=== PATIENT | female | born 1955 | race African-American/Black ===

== ENCOUNTER 2019-02-20 19:31 | Inpatient (IN) | payer SELFPAY ==
[2019-02-20] MEDS ORDERED: SODIUM CHLORIDE 1,000 ML IV STA (19:42)
[2019-02-20] MEDS ORDERED: ACETAMINOPHEN 1000 MG/100 ML VIAL (NON FORMULARY) IVPB ONE (19:46)
[2019-02-20 20:23] LABS: BASO % 0.8 % (0-2.0); HEMOGLOBIN 11.1 GM/dl (10.7-15.3); LYMPH % 8.4 % (8-40); MCH 27.6 pg (25.7-33.7); MCHC 33.6 g/dl (32.0-36.0); MEAN CELL VOLUME 82.3 fl (80-96); MEAN PLT VOLUME 8.3 fl (7.5-11.1); MONO % 6.6 % (3.8-10.2); NEUT % 84.2 % (42.8-82.8); PLATELET COUNT 335 K/MM3 (134-434); RBC 4.01 M/mm3 (3.60-5.2); WHITE BLOOD COUNT 14.9 K/mm3 (4.0-10.8)
[2019-02-20 20:30] LABS: INR 1.37 (0.82-1.09); PROTHROMBIN TIME (PATIENT) 15.2 SEC (10.2-13.0)
[2019-02-20 20:39] LABS: ALBUMIN 3.7 g/dl (3.4-5.0); BILIRUBIN,TOTAL 0.6 mg/dl (0.2-1); CREATININE 0.8 mg/dl (0.55-1.3); POTASSIUM 3.8 mmol/L (3.5-5.1); TOT PROT 8.2 g/dl (6.4-8.2)
[2019-02-20 21:12] LABS: VENOUS PC02 31.8 mmHg (41-51); VENOUS PH 7.44 (7.31-7.41); VENOUS PO2 63.1 mmHg (30-40)
--- NOTE | 2019-02-20 21:32 | PDOC ---
History of Present Illness - General Chief Complaint: Altered Mental Status Stated Complaint: SYNCOPAL EPISODE ALTERED MENTAl status Time Seen by Provider: 02/20/19 19:39 History Source: Patient, EMS Exam Limitations: Clinical Condition - History of Present Illness Initial Comments: HPI: 63 y/o female BIBEMS to ER with altered mental status s/p syncopal episode at work ([employer]). EMS reports the pt was found on the ground. Unable to provide further details or clarify if the episode was witnessed. HPI limited as the pt was only able to provide name but was otherwise disoriented upon arrival. Medical Hx: - Insulin dependent diabetes - HTN Review of Systems: Unable to obtain secondary to pts clinical condition. Physical Examination: Constitutional: Toxic appearing adult female in no acute life threat. Found semi -fowlers on hospital bed. Alert and oriented to person and place but otherwise disoriented. Speech was non-labored, non-pressured. Head: Normocephalic. No obvious external signs of trauma. No facial asymmetry or slurred speech. Eyes: Sclerae white. Neck: Supple, trachea is midline. No JVD or thyromegaly. Cardiovascular / Chest: Tachycardic rate with regular rhythm. No murmur, rubs, clicks, or gallops. Peripheral pulses: radial pulses full. Trace pretibial edema bilaterally. Respiratory: Tachypneic with shallow respirations. Equal chest rise and fall. Clear to auscultation bilaterally. No stridor, no wheezing, no rhonchi. Gastrointestinal: abdomen is soft, non-tender, non-distended. Neuro: Alert and oriented x2. Moving all four extremities spontaneously. No gross deficits. Skin: Hot but dry and intact. : No R or L CVA tenderness. Psych: Affect: appropriate. Mood: unable to assess. Appropriately dressed and groomed. MDM: *Reviewed vital signs, nursing notes, and prior visit documentation (if available). 63 y/o female presenting with AMS reportedly s/p syncopal episode. Tachycardic, tachypneic, and febrile on arrival. No hypotension. HPI and PMH limited by acute clinical condition. Physical exam as described above. Septic order set initiated. Head CT ordered. Administered NS IVFB and Acetaminophen. CBC revealed mild leukocytosis with left shift. CMP revealed mild hyponatremia. Low suspicion for cause of symptoms. Bicarb normal and pH mildly alkalic. Low suspicion for DKA. Head CT unremarkable for acute intracranial lesions. Lactic acid not elevated. Pts mental status improved after initial fluid bolus and acetaminophen. Pt reassessed. Found to be A/Ox4. Denies any active complaints. Denies passing out but cannot provide details on how she was brought to the hospital. Tachycardia has downtrended slightly. Fever has downtrended. Remains normotensive. UA revealed significant pyuria, nitrites, and leukocyte esterase. Suspect likely urosepsis. Ordered Ceftriaxone for antibiotic coverage. Will admit pt for IV antibiotics. 21:[address] [facility]. Awaiting call back. ED Attending will f/u on pending admission. Chetan Ruiz M.D., PGY2 Emergency Medicine Resident Past History - Past Medical History Allergies/Adverse Reactions: Allergies Allergy/AdvReac Type Severity Reaction Status Date / Time No Known Allergies Allergy Unverified 02/20/19 20:07 Home Medications: Ambulatory Orders Enalapril Maleate [Vasotec] 20 mg PO DAILY 02/20/19 Hydrochlorothiazide [Hctz -] 25 mg PO DAILY 02/20/19 Insulin Lispro [Humalog] 100 unit SQ ASDIR 02/20/19 COPD: No Diabetes: Yes HTN: Yes - Suicide/Smoking/Psychosocial Hx Smoking History: Never smoked Information on smoking cessation initiated: No Hx Alcohol Use: No Drug/Substance Use Hx: No *Physical Exam - Vital Signs Last Vital Signs Temp Pulse Resp BP Pulse Ox 101.7 F H 111 H 20 120/71 99 02/20/19 21:22 02/20/19 21:14 02/20/19 21:14 02/20/19 21:14 02/20/19 21:14 ED Treatment Course - LABORATORY CBC & Chemistry Diagram: 02/20/19 19:45 02/20/19 19:45 - ADDITIONAL ORDERS Additional order review: Laboratory Results 02/20/19 02/20/19 02/20/19 19:55 19:55 19:45 PT with INR INR VBG pH 7.44 H POC VBG pCO2 31.8 L POC VBG pO2 63.1 H VBG HCO3 21.1 L VBG O2 Sat (Nahun) 89.3 H VBG Base Excess -2.2 L Sodium Potassium Chloride Carbon Dioxide Anion Gap BUN Creatinine Est GFR (CKD-EPI)AfAm Est GFR (CKD-EPI)NonAf POC Glucometer Random Glucose Lactic Acid 1.5 Calcium Total Bilirubin AST ALT Alkaline Phosphatase Creatine Kinase Troponin I Total Protein Albumin Salicylates < 1.7 L Alcohol, Quantitative 02/20/19 02/20/19 02/20/19 19:45 19:45 19:45 PT with INR 15.2 H INR 1.37 H VBG pH POC VBG pCO2 POC VBG pO2 VBG HCO3 VBG O2 Sat (Nahun) VBG Base Excess Sodium 132 L Potassium 3.8 Chloride 100 Carbon Dioxide 22 Anion Gap 10 BUN 16.0 Creatinine 0.8 Est GFR (CKD-EPI)AfAm 92.22 Est GFR (CKD-EPI)NonAf 79.57 POC Glucometer Random Glucose 144 H Lactic Acid Calcium 10.0 Total Bilirubin 0.6 AST 21 ALT 20 Alkaline Phosphatase 52 Creatine Kinase 46 Troponin I Total Protein 8.2 Albumin 3.7 Salicylates Alcohol, Quantitative < 3.0 02/20/19 02/20/19 19:45 19:41 PT with INR INR VBG pH POC VBG pCO2 POC VBG pO2 VBG HCO3 VBG O2 Sat (Nahun) VBG Base Excess Sodium Potassium Chloride Carbon Dioxide Anion Gap BUN Creatinine Est GFR (CKD-EPI)AfAm Est GFR (CKD-EPI)NonAf POC Glucometer 154 Random Glucose Lactic Acid Calcium Total Bilirubin AST ALT Alkaline Phosphatase Creatine Kinase Troponin I < 0.03 Total Protein Albumin Salicylates Alcohol, Quantitative 02/20/19 02/20/19 19:45 19:41 RBC 4.01 MCV 82.3 MCHC 33.6 RDW 16.0 H MPV 8.3 Neutrophils % 84.2 H Lymphocytes % 8.4 Monocytes % 6.6 Eosinophils % 0.0 Basophils % 0.8 POC Glucometer 154 - Medications Given in the ED: ED Medications Discontinued Medications Generic Name Dose Route Start Last Admin Trade Name Freq PRN Reason Stop Dose Admin Acetaminophen 1,000 mg 02/20/19 19:46 02/20/19 20:03 Ofirmev Injection - IVPB 02/20/19 19:47 1,000 mg ONCE ONE Administration Sodium Chloride 1,000 mls @ 1,000 mls/hr 02/20/19 19:42 02/20/19 19:45 Normal Saline - IV 02/20/19 20:41 1,000 mls/hr ASDIR STA Administration *DC/Admit/Observation/Transfer Diagnosis at time of Disposition: Complicated UTI (urinary tract infection), Tachycardia, Tachypnea Sepsis Qualifiers: Sepsis type: sepsis due to unspecified organism Qualified Code(s): A41.9 - Sepsis, unspecified organism Syncope Qualifiers: Syncope type: unspecified Qualified Code(s): R55 - Syncope and collapse Fever Qualifiers: Fever type: unspecified Qualified Code(s): R50.9 - Fever, unspecified - Discharge Dispostion Condition at time of disposition: Guarded Decision to Admit order: Yes - Referrals - Patient Instructions - Post Discharge Activity
[2019-02-20] MEDS ORDERED: CEFTRIAXONE 1,000 MG in DEXTROSE 5%-WATER - 50 ML IVPB ONE (21:50)
[2019-02-20] MEDS ORDERED: SODIUM CHLORIDE 0.9% 500 ML INFUS.BAG IV ONE (21:51)
[2019-02-20] MEDS ORDERED: cefTRIAXone SODIUM 1 GM VIAL ONE (21:55)
[2019-02-20 22:00] LABS: EPITHELIAL CELLS FEW /hpf
[2019-02-20] MEDS ORDERED: ACETAMINOPHEN 325 MG TABLET (FP) PO PRN (22:57)
[2019-02-20] MEDS: SODIUM CHLORIDE 1,000 ML IV SCH (23:30)
--- NOTE | 2019-02-20 23:35 | HP ---
CHIEF COMPLAINT: AMS, Syncopal episode PCP: Dr. Alonso HISTORY OF PRESENT ILLNESS: 63 year old female with PMhx of IDDM and HTN arrived to ED by EMS for altered mental status and syncopal episode. 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 Patient can not recall incident. Patient denies headache, lightheadedness. Denies fever. Denies chest pain, shortness of breath. Denies nausea, vomiting, diarrhea, abdominal pain. Unable to get complete history as patient lethargy and disoriented at times ER course was notable for: (1) 2 L IVF given (2) Trops negative, CT head: unremarkable, CXR:negative (3) Bicarb normal, anion gap normal (4) UA + given Rocephin 1 g Recent Travel: no PAST MEDICAL HISTORY: IDDM, HTN PAST SURGICAL HISTORY: unable to get information as patient is disoriented/ lethargic Social History: Smoking:no Alcohol:no Drugs: no Family History: unable to get information as patient is disoriented/ lethargic Allergies: No Known Allergies Allergy (Unverified 02/20/19 20:07) HOME MEDICATIONS: Home Medications Medication Instructions Recorded Enalapril Maleate [Vasotec] 20 mg PO DAILY 02/20/19 Hydrochlorothiazide [Hctz -] 25 mg PO DAILY 02/20/19 Insulin Lispro [Humalog] 100 unit SQ ASDIR 02/20/19 REVIEW OF SYSTEMS : unable to conduct ROS as patient is lethargic and disoriented PHYSICAL EXAMINATION Vital Signs - 24 hr 02/20/19 02/20/19 02/20/19 19:33 20:00 20:05 Temperature 103.1 F H 104.3 F H Pulse Rate 122 H 122 H Pulse Rate [ 123 H Apical] Respiratory 32 H 24 H 24 H Rate Blood Pressure 138/75 135/66 Blood Pressure 135/66 [Left Arm] O2 Sat by Pulse 94 L 97 94 L Oximetry (%) 02/20/19 02/20/19 02/20/19 20:17 20:30 20:37 Temperature Pulse Rate 119 H Pulse Rate [ 117 H Apical] Respiratory 18 Rate Blood Pressure Blood Pressure 94/68 [Left Arm] O2 Sat by Pulse 97 99 97 Oximetry (%) 0702/20/19 02/20/19 20:53 21:14 21:22 Temperature 101.7 F H Pulse Rate Pulse Rate [ 119 H 111 H Apical] Respiratory 19 20 Rate Blood Pressure Blood Pressure 105/61 120/71 [Left Arm] O2 Sat by Pulse 97 99 Oximetry (%) GENERAL:lethargy HEENT: NC/AT, EOMI, PERRLA, No JVD RESP: CTA Cardio: S1/S2, no mumur Abd: soft, NT/ ND, BS + Neuro: lethargy, respond to verbal and tactile stimuli ( can answer simple Yes and No questions ) Laboratory Results - last 24 hr 02/20/19 02/20/19 02/20/19 19:41 19:45 19:45 WBC RBC Hgb Hct MCV MCH MCHC RDW Plt Count MPV Absolute Neuts (auto) Neutrophils % Lymphocytes % Monocytes % Eosinophils % Basophils % PT with INR INR VBG pH POC VBG pCO2 POC VBG pO2 VBG HCO3 VBG O2 Sat (Nahun) VBG Base Excess Sodium 132 L Potassium 3.8 Chloride 100 Carbon Dioxide 22 Anion Gap 10 BUN 16.0 Creatinine 0.8 Est GFR (CKD-EPI)AfAm 92.22 Est GFR (CKD-EPI)NonAf 79.57 POC Glucometer 154 Random Glucose 144 H Lactic Acid Calcium 10.0 Total Bilirubin 0.6 AST 21 ALT 20 Alkaline Phosphatase 52 Creatine Kinase 46 Troponin I < 0.03 Total Protein 8.2 Albumin 3.7 Urine Color Urine Appearance Urine pH Urine Protein Urine Glucose (UA) Urine Ketones Urine Blood Urine Nitrite Urine Bilirubin Urine Urobilinogen Ur Leukocyte Esterase Urine RBC Urine WBC Ur Transition Epith Cell Urine Bacteria Salicylates Acetaminophen Alcohol, Quantitative 02/20/19 02/20/19 02/20/19 19:45 19:45 19:45 WBC 14.9 H RBC 4.01 Hgb 11.1 Hct 33.0 MCV 82.3 MCH 27.6 MCHC 33.6 RDW 16.0 H Plt Count 335 MPV 8.3 Absolute Neuts (auto) 12.5 Neutrophils % 84.2 H Lymphocytes % 8.4 Monocytes % 6.6 Eosinophils % 0.0 Basophils % 0.8 PT with INR 15.2 H INR 1.37 H VBG pH POC VBG pCO2 POC VBG pO2 VBG HCO3 VBG O2 Sat (Nahun) VBG Base Excess Sodium Potassium Chloride Carbon Dioxide Anion Gap BUN Creatinine Est GFR (CKD-EPI)AfAm Est GFR (CKD-EPI)NonAf POC Glucometer Random Glucose Lactic Acid Calcium Total Bilirubin AST ALT Alkaline Phosphatase Creatine Kinase Troponin I Total Protein Albumin Urine Color Urine Appearance Urine pH Urine Protein Urine Glucose (UA) Urine Ketones Urine Blood Urine Nitrite Urine Bilirubin Urine Urobilinogen Ur Leukocyte Esterase Urine RBC Urine WBC Ur Transition Epith Cell Urine Bacteria Salicylates Acetaminophen < 10 L Alcohol, Quantitative 02/20/19 02/20/19 02/20/19 19:45 19:45 19:55 WBC RBC Hgb Hct MCV MCH MCHC RDW Plt Count MPV Absolute Neuts (auto) Neutrophils % Lymphocytes % Monocytes % Eosinophils % Basophils % PT with INR INR VBG pH POC VBG pCO2 POC VBG pO2 VBG HCO3 VBG O2 Sat (Nahun) VBG Base Excess Sodium Potassium Chloride Carbon Dioxide Anion Gap BUN Creatinine Est GFR (CKD-EPI)AfAm Est GFR (CKD-EPI)NonAf POC Glucometer Random Glucose Lactic Acid 1.5 Calcium Total Bilirubin AST ALT Alkaline Phosphatase Creatine Kinase Troponin I Total Protein Albumin Urine Color Urine Appearance Urine pH Urine Protein Urine Glucose (UA) Urine Ketones Urine Blood Urine Nitrite Urine Bilirubin Urine Urobilinogen Ur Leukocyte Esterase Urine RBC Urine WBC Ur Transition Epith Cell Urine Bacteria Salicylates < 1.7 L Acetaminophen Alcohol, Quantitative < 3.0 02/20/19 02/20/19 19:55 21:40 WBC RBC Hgb Hct MCV MCH MCHC RDW Plt Count MPV Absolute Neuts (auto) Neutrophils % Lymphocytes % Monocytes % Eosinophils % Basophils % PT with INR INR VBG pH 7.44 H POC VBG pCO2 31.8 L POC VBG pO2 63.1 H VBG HCO3 21.1 L VBG O2 Sat (Nahun) 89.3 H VBG Base Excess -2.2 L Sodium Potassium Chloride Carbon Dioxide Anion Gap BUN Creatinine Est GFR (CKD-EPI)AfAm Est GFR (CKD-EPI)NonAf POC Glucometer Random Glucose Lactic Acid Calcium Total Bilirubin AST ALT Alkaline Phosphatase Creatine Kinase Troponin I Total Protein Albumin Urine Color Yellow Urine Appearance Cloudy Urine pH 5.5 Urine Protein 1+ H Urine Glucose (UA) Negative Urine Ketones Negative Urine Blood Trace-lysed Urine Nitrite Positive H Urine Bilirubin Negative Urine Urobilinogen 0.2 Ur Leukocyte Esterase 2+ Urine RBC 5-10 Urine WBC >100 Ur Transition Epith Cell Few Urine Bacteria Many Salicylates Acetaminophen Alcohol, Quantitative ASSESSMENT/PLAN: 63 year old female with PMHx of IDDM and HTN arrived to ED by EMS for altered mental status and syncopal episode. 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 Patient can not recall incident. In ED patient was given 2L IVF and Rocephin x1 - post patient AOx3 then around 12N patient disoriented / lethargy added zosyn x1 monitor for acute mental changes # sepsis #UTI # Syncope In ED noted with tachycardia, Tachypneic and febrile - Head CT unremarkable - CXR: Negative - CBC: leukocytosis with left shift - CMP revealed mild hyponatremia - UA: pyuria, nitrites, and leukocyte esterase in ED given 2 L NS, tylenol and IV Rocephin x1 - follow up urine and blood culture - continue with IV NS for 24 hours - follow up CBC, CMP in AM - Continue with Rocephin daily - Tylenol po PRN for fever # DM - monitor FSBS coverage with sliding scale - f/u HgA1c # HTN - Continue with Hydrochlorothiazide - Continue with Enalapril Problem List - Problem (1) Sepsis Code(s): A41.9 - SEPSIS, UNSPECIFIED ORGANISM Qualifiers: Sepsis type: sepsis due to unspecified organism Qualified Code(s): A41.9 - Sepsis, unspecified organism (2) Complicated UTI (urinary tract infection) Code(s): N39.0 - URINARY TRACT INFECTION, SITE NOT SPECIFIED (3) Syncope Code(s): R55 - SYNCOPE AND COLLAPSE Qualifiers: Syncope type: unspecified Qualified Code(s): R55 - Syncope and collapse (4) HTN (hypertension) Code(s): I10 - ESSENTIAL (PRIMARY) HYPERTENSION (5) Diabetes Code(s): E11.9 - TYPE 2 DIABETES MELLITUS WITHOUT COMPLICATIONS Visit type - Emergency Visit Emergency Visit: Yes Care time: The patient presented to the Emergency Department on the above date and was hospitalized for further evaluation of their emergent condition. - New Patient This patient is new to me today: Yes Date on this admission: 02/21/19 - Critical Care Critical Care patient: No
[2019-02-21] MEDS ORDERED: PIPERACILLIN/TAZOB 4.5 GM 4.5 GM in DEXTROSE 5%-WATER 100 ML IVPB ONE (00:05)
[2019-02-21] MEDS ORDERED: PIPERACILLIN/TAZOBACTAM 4.5 GM VIAL IVPB ONE (00:08)
[2019-02-21] MEDS ORDERED: ACETAMINOPHEN INJECTION 100 ML IVPB ONE (01:38)
[2019-02-21] MEDS ORDERED: KETOROLAC TROMETHAMINE 30 MG/1 ML VIAL IVPUSH ONE (01:55)
[2019-02-21] MEDS ORDERED: KETOROLAC TROMETHAMINE 30 MG/1 ML VIAL ONE (01:58)
--- NOTE | 2019-02-21 02:11 | PDOC ---
Documentation entered by Sonny Ferguson SCRIBE, acting as scribe for Brielle David MD. Brielle David MD: This documentation has been prepared by the Marty mcintosh Daniel, SCRIBE, under my direction and personally reviewed by me in its entirety. I confirm that the documentation accurately reflects all work, treatment, procedures, and medical decision making performed by me. Attending Attestation - Resident Resident Name: Chetan - ED Attending Attestation I have performed the following: I have examined & evaluated the patient, The case was reviewed & discussed with the resident, I agree w/resident's findings & plan - HPI HPI: 02/20/19 20:11 The patient is a 63 year old female with a past medical history of insulin dependent diabetes and HTN here today for evaluation of altered mental status. History is limited due to patients condition, patient is able to answer some questions but does not recall what happened to her. 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 Patient does not recall the incident and only complains of being cold. Patient denies headache, lightheadedness. Denies fever. Denies chest pain, shortness of breath. Denies nausea, vomiting, diarrhea, abdominal pain. Allergies: NKA - Physicial Exam PE: 02/20/19 20:58 GENERAL: Awake, alert, and oriented to person only, in no acute distress HEAD: No signs of trauma EYES: PERRLA, EOMI, sclera anicteric, conjunctiva clear ENT: +dry mucous membranes. Auricles normal inspection, hearing grossly normal, nares patent, oropharynx clear without exudates. NECK: Normal ROM, supple, no lymphadenopathy, JVD, or masses LUNGS: Breath sounds equal, clear to auscultation bilaterally. No wheezes, and no crackles HEART: +2/6systolic ejection murmur heard R and L 2nd ICS. Regular rate and rhythm, normal S1 and S2, rubs or gallops ABDOMEN: Soft, nontender, normoactive bowel sounds. No guarding, no rebound. No masses EXTREMITIES: Normal range of motion, no edema. No clubbing or cyanosis. No cords, erythema, or tenderness NEUROLOGICAL: Cranial nerves II through XII grossly intact. Moving all 4 extremities equally SKIN: Warm, Dry, normal turgor, no rashes or lesions noted. 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 On presentation, the patient was responsive but oriented only to person. Only complaint that she had was that she "felt cold" during the day. Exam as noted above with marked fever (104F rectally)/tachycardia. Patient had dry mucous membranes and no other significant findings on physical exam. Sepsis protocol with IV hydration begun As noted, diagnostic workup revealed elevated white blood cell count 14.9 thousand with a predominance of neutrophils. Random glucose not significantly elevated at 144; no evidence of significant acidosis with normal lactic acid. Only abnormalities was urinalysis consistent with UTI. Blood cultures and urine culture sent with diagnostic labs. Clinically, the patient became alert, coherent and totally oriented soon after receiving 1 L normal saline IV. She again denied any specific symptoms except for "feeling cold", although she denied shaking chills during the day. She denied recent travel or known exposure to anyone with fever. No rash/insect bites noted. She denies previous history of UTI or other infection requiring hospitalization. Patient had received 1 g acetaminophen IV soon after presentation. Repeat measurement of her rectal temperature is was 101.7F. Clinical presentation most consistent with urosepsis/complicated UTI. Patient was given ceftriaxone 1 g IV. Case [facility] Patient to be [facility] to [facility] at Dr. Celeste Corbett service.
[2019-02-21 02:30] LABS: BASO % 0.3 % (0-2.0); HEMATOCRIT 28.4 % (32.4-45.2); HEMOGLOBIN 9.5 GM/dL (10.7-15.3); LYMPH % 6.7 % (8-40); MCH 27.6 pg (25.7-33.7); MCHC 33.4 g/dl (32.0-36.0); MEAN CELL VOLUME 82.7 fl (80-96); MEAN PLT VOLUME 7.9 fl (7.5-11.1); MONO % 4.3 % (3.8-10.2); NEUT % 88.7 % (42.8-82.8); PLATELET COUNT 268 K/MM3 (134-434); RBC 3.44 M/mm3 (3.60-5.2); RDW 16.9 % (11.6-15.6); WHITE BLOOD COUNT 11.9 K/mm3 (4.0-10.0)
[2019-02-21 02:37] LABS: ALBUMIN 2.9 g/dl (3.4-5.0); ALK PHOS 58 U/L (45-117); ANION GAP 9 MMOL/L (8-16); BILIRUBIN,TOTAL 0.7 mg/dL (0.2-1); BLOOD UREA NITROGEN 14.4 mg/dL (7-18); CALCIUM 8.6 mg/dL (8.5-10.1); CHLORIDE 107 mmol/L (98-107); CO2 23 mmol/L (21-32); CREATININE 0.9 mg/dL (0.55-1.3); GLUCOSE,RANDOM 225 mg/dL (74-106); POTASSIUM 3.9 mmol/L (3.5-5.1); SGOT/AST 15 U/L (15-37); SGPT/ALT 19 U/L (13-61); SODIUM 139 mmol/L (136-145); TOT PROT 7.2 g/dl (6.4-8.2)
[2019-02-21] MEDS ORDERED: INSULIN (NOVOLOG) ASPART 100 UNITS/ML 10ML VIAL ONE ×2 (07:31→07:43)
[2019-02-21] MEDS: INSULIN (NOVOLOG) ASPART 100 UNITS/ML 10ML VIAL SQ SCH ×4 (07:44→21:40)
[2019-02-21] MEDS ORDERED: HYDROCHLOROTHIAZIDE 25 MG TABLET (FP) PO SCH (10:00)
[2019-02-21] MEDS ORDERED: CEFTRIAXONE 1 GM in DEXTROSE 5%-WATER - 50 ML IVPB SCH (10:00)
[2019-02-21] MEDS ORDERED: ENOXAPARIN NA (PORCINE) 30 MG/0.3 ML DISP.SYRIN SQ SCH (10:00)
[2019-02-21] MEDS: ENALAPRIL MALEATE 10 MG TABLET (FP) PO SCH (10:21)
--- NOTE | 2019-02-21 10:30 | PN ---
Progress Note (short form) - Note Progress Note: ID CONSULT DICTATED\ SYNCOPE UTI R/O SEPSIS SECONDARY TO UTI FEVER/ LEUKOCYTOSIS IDDM AWAIT CULTURES EMPIRIC CEFTRIAXONE
[2019-02-21] MEDS: SODIUM CHLORIDE 1,000 ML IV SCH (10:34)
[2019-02-21 10:51] VITALS: BMI 29.6
[2019-02-21] MEDS: CEFTRIAXONE 2 GM-D5W BAG 2 GM/50 ML BAG IVPB SCH (10:56)
[2019-02-21] MEDS: ENOXAPARIN NA (PORCINE) 40 MG/0.4 ML DISP.SYRIN SQ SCH (10:56)
--- NOTE | 2019-02-21 11:22 | CONS ---
DATE OF CONSULTATION: DATE OF DICTATION: 02/21/2019 INFECTIOUS DISEASE CONSULTATION The patient is a 63-year-old female evaluated for sepsis. 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 According to the notes, she had had some altered mentation and a syncopal episode while at the facility, 911 was called, she was taken to the emergency room where she was noted to have high-grade fever to 104.3, tachycardia, and an elevated white blood cell count. Cultures were obtained, and she was empirically treated with ceftriaxone. Patient has no recall for the events. She was unable to provide any additional details. She denies any recent febrile illness. Denies any ill contacts other than resident at the nursing facility. No complaints of chest pain, shortness of breath, cough, or sputum production. No abdominal pain, vomiting, diarrhea. No complaints of dysuria or hematuria. No history of diabetic foot infections. The patient is from [facility]. She has been living in the [place] for the past 16 years. She denies any recent travel. She denies any recent mosquito or tick bites. No complaints of rash. PAST MEDICAL HISTORY: Positive for insulin-dependent diabetes mellitus, hypertension. ALLERGIES: No known allergies. SOCIAL HISTORY: As per HPI. She is a nonsmoker, nondrinker. 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 SYSTEM REVIEW: Neurologic: Positive for syncopal episode. No seizure activity or focal weakness. Cardiac: Negative chest pain or palpitations. Respiratory: Negative cough or sputum production. Gastrointestinal: Negative vomiting or diarrhea. Genitourinary: Negative for dysuria or hematuria. LABORATORY DATA: White count on admission 14.9, presently 11.9, hematocrit 28.4, platelets 268. BUN 14, creatinine 0.9. Urinalysis greater than 100 white cells, lactic acid 1.7. Liver enzymes normal. CAT SCAN OF THE HEAD: Negative for acute infarct or bleed. PHYSICAL EXAMINATION: General: She is awake. She is supine on the stretcher in the emergency room in no acute distress. She is oriented x3. Vital Signs: Temperature 98.4, T-max 104.8, blood pressure 108/71, pulse 88 regular, respirations 20 per minute. Eyes: Sclerae anicteric. Heart: Sounds S1, S2. Lungs: Clear bilaterally. Abdomen: Soft, obese, nontender. No palpable liver or spleen. Extremities: Negative for edema. No infected diabetic foot wounds noted. IMPRESSION: 1. Status post syncopal episode. 2. Urinary tract infection, possible sepsis secondary to urinary tract infection. 3. Fever, leukocytosis. 4. Insulin-dependent diabetes mellitus. RECOMMENDATIONS: Await culture results. Continue empiric ceftriaxone 2 g IV piggyback daily pending sepsis workup. Syncope workup. Thank you for the kind referral. URBANO SIMS M.D. [id number]
[2019-02-21] MEDS ORDERED: SODIUM CHLORIDE 1,000 ML IV STA (11:29)
[2019-02-21] MEDS ORDERED: ACETAMINOPHEN 500 MG TABLET (FP) PO ONE (11:45)
--- NOTE | 2019-02-21 12:09 | PN ---
Physical Exam: SUBJECTIVE: Patient seen and examined at bedside. Still feels "cold inside." Denies cough, upper respiratory symptoms; denies nausea, vomiting, diarrhea; endorses frequency, denies dysuria, urgency, hematuria. OBJECTIVE: Vital Signs Period Temp Pulse Resp BP Sys/Guerrier Pulse Ox Last 24 Hr 98.1 F-104.8 F 88-123 15-32 86-144/43-78 94-100 GENERAL: The patient is awake, alert, and fully oriented, in no acute distress. Mild shaking chills. LUNGS: CTA; RR32, +accessory muscle use HEART: Regular rate and rhythm, S1, S2 ABDOMEN: Soft, nontender, nondistended, normoactive bowel sounds, no guarding, no rebound tenderness EXTREMITIES: 2+ pulses, warm, well-perfused, no edema. NEUROLOGICAL: Cranial nerves II through XII grossly intact. Normal speech, gait not observed. Laboratory Results - last 24 hr 02/20/19 02/20/19 02/20/19 19:41 19:45 19:45 WBC RBC Hgb Hct MCV MCH MCHC RDW Plt Count MPV Absolute Neuts (auto) Neutrophils % Lymphocytes % Monocytes % Eosinophils % Basophils % Nucleated RBC % PT with INR INR VBG pH POC VBG pCO2 POC VBG pO2 VBG HCO3 VBG O2 Sat (Nahun) VBG Base Excess Sodium 132 L Potassium 3.8 Chloride 100 Carbon Dioxide 22 Anion Gap 10 BUN 16.0 Creatinine 0.8 Est GFR (CKD-EPI)AfAm 92.22 Est GFR (CKD-EPI)NonAf 79.57 POC Glucometer 154 Random Glucose 144 H Hemoglobin A1c % Lactic Acid Calcium 10.0 Total Bilirubin 0.6 AST 21 ALT 20 Alkaline Phosphatase 52 Creatine Kinase 46 Troponin I < 0.03 Total Protein 8.2 Albumin 3.7 Urine Color Urine Appearance Urine pH Urine Protein Urine Glucose (UA) Urine Ketones Urine Blood Urine Nitrite Urine Bilirubin Urine Urobilinogen Ur Leukocyte Esterase Urine RBC Urine WBC Ur Transition Epith Cell Urine Bacteria Salicylates Acetaminophen Alcohol, Quantitative 02/20/19 02/20/19 02/20/19 19:45 19:45 19:45 WBC 14.9 H RBC 4.01 Hgb 11.1 Hct 33.0 MCV 82.3 MCH 27.6 MCHC 33.6 RDW 16.0 H Plt Count 335 MPV 8.3 Absolute Neuts (auto) 12.5 Neutrophils % 84.2 H Lymphocytes % 8.4 Monocytes % 6.6 Eosinophils % 0.0 Basophils % 0.8 Nucleated RBC % PT with INR 15.2 H INR 1.37 H VBG pH POC VBG pCO2 POC VBG pO2 VBG HCO3 VBG O2 Sat (Nahun) VBG Base Excess Sodium Potassium Chloride Carbon Dioxide Anion Gap BUN Creatinine Est GFR (CKD-EPI)AfAm Est GFR (CKD-EPI)NonAf POC Glucometer Random Glucose Hemoglobin A1c % Lactic Acid Calcium Total Bilirubin AST ALT Alkaline Phosphatase Creatine Kinase Troponin I Total Protein Albumin Urine Color Urine Appearance Urine pH Urine Protein Urine Glucose (UA) Urine Ketones Urine Blood Urine Nitrite Urine Bilirubin Urine Urobilinogen Ur Leukocyte Esterase Urine RBC Urine WBC Ur Transition Epith Cell Urine Bacteria Salicylates Acetaminophen < 10 L Alcohol, Quantitative 02/20/19 02/20/19 02/20/19 19:45 19:45 19:55 WBC RBC Hgb Hct MCV MCH MCHC RDW Plt Count MPV Absolute Neuts (auto) Neutrophils % Lymphocytes % Monocytes % Eosinophils % Basophils % Nucleated RBC % PT with INR INR VBG pH POC VBG pCO2 POC VBG pO2 VBG HCO3 VBG O2 Sat (Nahun) VBG Base Excess Sodium Potassium Chloride Carbon Dioxide Anion Gap BUN Creatinine Est GFR (CKD-EPI)AfAm Est GFR (CKD-EPI)NonAf POC Glucometer Random Glucose Hemoglobin A1c % Lactic Acid 1.5 Calcium Total Bilirubin AST ALT Alkaline Phosphatase Creatine Kinase Troponin I Total Protein Albumin Urine Color Urine Appearance Urine pH Urine Protein Urine Glucose (UA) Urine Ketones Urine Blood Urine Nitrite Urine Bilirubin Urine Urobilinogen Ur Leukocyte Esterase Urine RBC Urine WBC Ur Transition Epith Cell Urine Bacteria Salicylates < 1.7 L Acetaminophen Alcohol, Quantitative < 3.0 02/20/19 02/20/19 02/21/19 19:55 21:40 01:30 WBC 11.9 H RBC 3.44 L Hgb 9.5 L Hct 28.4 L MCV 82.7 MCH 27.6 MCHC 33.4 RDW 16.9 H Plt Count 268 MPV 7.9 Absolute Neuts (auto) 10.5 H Neutrophils % 88.7 H Lymphocytes % 6.7 L Monocytes % 4.3 Eosinophils % 0.0 Basophils % 0.3 Nucleated RBC % 0 PT with INR INR VBG pH 7.44 H POC VBG pCO2 31.8 L POC VBG pO2 63.1 H VBG HCO3 21.1 L VBG O2 Sat (Nahun) 89.3 H VBG Base Excess -2.2 L Sodium Potassium Chloride Carbon Dioxide Anion Gap BUN Creatinine Est GFR (CKD-EPI)AfAm Est GFR (CKD-EPI)NonAf POC Glucometer Random Glucose Hemoglobin A1c % Lactic Acid Calcium Total Bilirubin AST ALT Alkaline Phosphatase Creatine Kinase Troponin I Total Protein Albumin Urine Color Yellow Urine Appearance Cloudy Urine pH 5.5 Urine Protein 1+ H Urine Glucose (UA) Negative Urine Ketones Negative Urine Blood Trace-lysed Urine Nitrite Positive H Urine Bilirubin Negative Urine Urobilinogen 0.2 Ur Leukocyte Esterase 2+ Urine RBC 5-10 Urine WBC >100 Ur Transition Epith Cell Few Urine Bacteria Many Salicylates Acetaminophen Alcohol, Quantitative 02/21/19 02/21/19 02/21/19 01:30 01:30 01:30 WBC RBC Hgb Hct MCV MCH MCHC RDW Plt Count MPV Absolute Neuts (auto) Neutrophils % Lymphocytes % Monocytes % Eosinophils % Basophils % Nucleated RBC % PT with INR INR VBG pH POC VBG pCO2 POC VBG pO2 VBG HCO3 VBG O2 Sat (Nahun) VBG Base Excess Sodium 139 Potassium 3.9 Chloride 107 Carbon Dioxide 23 Anion Gap 9 BUN 14.4 Creatinine 0.9 Est GFR (CKD-EPI)AfAm 79.98 Est GFR (CKD-EPI)NonAf 69.01 POC Glucometer Random Glucose 225 H Hemoglobin A1c % 10.8 H Lactic Acid 1.7 Calcium 8.6 Total Bilirubin 0.7 AST 15 ALT 19 Alkaline Phosphatase 58 Creatine Kinase Troponin I Total Protein 7.2 Albumin 2.9 L Urine Color Urine Appearance Urine pH Urine Protein Urine Glucose (UA) Urine Ketones Urine Blood Urine Nitrite Urine Bilirubin Urine Urobilinogen Ur Leukocyte Esterase Urine RBC Urine WBC Ur Transition Epith Cell Urine Bacteria Salicylates Acetaminophen Alcohol, Quantitative 02/21/19 02/21/19 07:24 11:48 WBC RBC Hgb Hct MCV MCH MCHC RDW Plt Count MPV Absolute Neuts (auto) Neutrophils % Lymphocytes % Monocytes % Eosinophils % Basophils % Nucleated RBC % PT with INR INR VBG pH POC VBG pCO2 POC VBG pO2 VBG HCO3 VBG O2 Sat (Nahun) VBG Base Excess Sodium Potassium Chloride Carbon Dioxide Anion Gap BUN Creatinine Est GFR (CKD-EPI)AfAm Est GFR (CKD-EPI)NonAf POC Glucometer 226 177 Random Glucose Hemoglobin A1c % Lactic Acid Calcium Total Bilirubin AST ALT Alkaline Phosphatase Creatine Kinase Troponin I Total Protein Albumin Urine Color Urine Appearance Urine pH Urine Protein Urine Glucose (UA) Urine Ketones Urine Blood Urine Nitrite Urine Bilirubin Urine Urobilinogen Ur Leukocyte Esterase Urine RBC Urine WBC Ur Transition Epith Cell Urine Bacteria Salicylates Acetaminophen Alcohol, Quantitative Active Medications Generic Name Dose Route Start Last Admin Trade Name Freq PRN Reason Stop Dose Admin Acetaminophen 1,000 mg 02/21/19 11:45 02/21/19 11:41 Tylenol - PO 02/21/19 11:46 1,000 mg ONCE ONE Administration Acetaminophen 650 mg 02/21/19 18:00 Tylenol - PO 02/22/19 12:01 Q6H [facility] Enalapril Maleate 20 mg 02/21/19 10:00 02/21/19 10:21 Vasotec - PO Not Given DAILY [facility] Enoxaparin Sodium 40 mg 02/21/19 10:00 02/21/19 10:56 Lovenox - SQ Not Given DAILY [facility] Ceftriaxone Sodium 2 gm in 50 mls @ 100 mls/hr 02/21/19 10:30 02/21/19 10:56 Ceftriaxone 2 Gm-D5w Bag IVPB 100 mls/hr DAILY ANGÉLICA Administration Protocol Sodium Chloride 1,000 mls @ 1,000 mls/hr 02/21/19 11:29 02/21/19 11:42 Normal Saline - IV 02/21/19 12:28 1,000 mls/hr ASDIR STA Administration Sodium Chloride 1,000 mls @ 100 mls/hr 02/21/19 13:00 Normal Saline - IV ASDIR ANGÉLICA Insulin Aspart 0 units 02/21/19 16:30 Novolog Vial SQ ACHS [facility] Protocol Microbiology 02/20/19 19:55 Blood - Peripheral Venous Blood Culture - Preliminary Pending Organism ASSESSMENT/PLAN 63 year-old female with a PMH significant for HTN and IDDM. Admitted for severe sepsis secondary to pyelonephritis. Severe sepsis secondary to pyelonephritis Metabolic encephalopathy secondary to severe sepsis/fever --T104.8, p122, WBC 14.9k, pyuria on admission --lactic acid wnl --significant drop in BP; systolic 135-->86 --received 2L NS in ED; give 3rd litre now, then 100mL/hr --1 out of 2 bottles (+) GNB; urine culture pending --continue ceftriaxone (day #2) --Tylenol for fever --ID following Syncope --most likely secondary to infection/fever but will pursue workup --CT head negative --troponin neg x 1, second pending --CXR unremarkable --echo --US carotids --telemetry monitoring Hypertension --hypotensive due to sepsis; hold home HCTZ and enalapril IDDM --Novolog sliding scale coverage FEN Fluids: NS@100mL/hr Electrolytes: replete as indicated Nutrition: diabetic, low sodium DVT prophylaxis: subq lovenox Dispo: continues to require inpatient care. Full code. Visit type - Emergency Visit Emergency Visit: Yes ED Registration Date: 02/21/19 Care time: The patient presented to the Emergency Department on the above date and was hospitalized for further evaluation of their emergent condition. - New Patient This patient is new to me today: Yes Date on this admission: 02/21/19 - Critical Care Critical Care patient: Yes Total Critical Care Time (in minutes): 45 Critical Care Statement: The care of this patient involved high complexity decision making to prevent further life threatening deterioration of the patient 's condition and/or to evaluate & treat vital organ system(s) failure or risk of failure.
[2019-02-21] MEDS ORDERED: SODIUM CHLORIDE 1,000 ML IV SCH ×2 (13:00→18:08)
[2019-02-21] MEDS: ATORVASTATIN CA 40 MG TABLET (FP) PO SCH (13:28)
[2019-02-21] MEDS: ASPIRIN COATED 81 MG TABLET.EC PO SCH (13:28)
--- NOTE | 2019-02-21 14:06 | EKG ---
Test Reason : Blood Pressure : / mmHG Vent. Rate : 121 BPM Atrial Rate : 121 BPM P-R Int : 130 ms QRS Dur : 084 ms QT Int : 332 ms P-R-T Axes : 064 035 036 degrees QTc Int : 471 ms SINUS TACHYCARDIA POSSIBLE LEFT ATRIAL ENLARGEMENT BORDERLINE ECG NO PREVIOUS ECGS AVAILABLE Confirmed by ASHLEY GALLARDO MD ([id number]) on 02/21/2019 2:06:50 PM Referred By: MD HORTON Confirmed By:ASHLEY GALLARDO MD
[2019-02-21 14:10] LABS: HEMATOCRIT 26.6 % (32.4-45.2); HEMOGLOBIN 8.9 GM/dl (10.7-15.3); MCH 27.9 pg (25.7-33.7); MCHC 33.5 g/dl (32.0-36.0); MEAN CELL VOLUME 83.2 fl (80-96); MEAN PLT VOLUME 7.9 fl (7.5-11.1); PLATELET COUNT 237 K/MM3 (134-434); RDW 15.6 % (11.6-15.6); WHITE BLOOD COUNT 15.3 K/mm3 (4.0-10.8)
[2019-02-21 14:30] LABS: CALCIUM 7.9 mg/dl (8.5-10); CREATININE 0.8 mg/dl (0.55-1.3); POTASSIUM 3.3 mmol/L (3.5-5.1)
[2019-02-21] MEDS: POTASSIUM CHLORIDE TABS 20 MEQ TABLET.ER (FP) PO SCH ×2 (16:00→20:38)
[2019-02-21] MEDS: ACETAMINOPHEN 325 MG TABLET (FP) PO SCH (18:12)
[2019-02-22] MEDS: ACETAMINOPHEN 325 MG TABLET (FP) PO SCH ×5 (00:03→23:38)
[2019-02-22] MEDS: INSULIN (NOVOLOG) ASPART 100 UNITS/ML 10ML VIAL SQ SCH ×4 (07:02→22:17)
--- NOTE | 2019-02-22 08:32 | PN ---
Physical Exam: SUBJECTIVE: Patient seen and examined at bedside. Feels better. Denies fever, sweats, chills. Good UOP. OBJECTIVE: Vital Signs Period Temp Pulse Resp BP Sys/Guerrier Pulse Ox Last 24 Hr 98.1 F-100.5 F 88-130 17-20 97-133/43-72 94-100 GENERAL: The patient is awake, alert, and fully oriented, in no acute distress. LUNGS: CTA HEART: Regular rate and rhythm, S1, S2 ABDOMEN: Soft, nontender, nondistended, normoactive bowel sounds, no guarding, no rebound tenderness EXTREMITIES: 2+ pulses, warm, well-perfused, no edema. SKIN: normally pigmented, warm, dry Laboratory Results - last 24 hr 02/21/19 02/21/19 02/21/19 01:30 11:48 14:03 WBC 15.3 H RBC 3.20 L Hgb 8.9 L Hct 26.6 L D MCV 83.2 MCH 27.9 MCHC 33.5 RDW 15.6 Plt Count 237 MPV 7.9 Sodium 139 Potassium 3.9 Chloride 107 Carbon Dioxide 23 Anion Gap 9 BUN 14.4 Creatinine 0.9 Est GFR (CKD-EPI)AfAm 79.98 Est GFR (CKD-EPI)NonAf 69.01 POC Glucometer 177 Random Glucose 225 H Lactic Acid Calcium 8.6 Total Bilirubin 0.7 AST 15 ALT 19 Alkaline Phosphatase 58 Troponin I < 0.02 Total Protein 7.2 Albumin 2.9 L 02/21/19 02/21/19 02/21/19 14:03 14:05 15:12 WBC RBC Hgb Hct MCV MCH MCHC RDW Plt Count MPV Sodium 137 Potassium 3.3 L Chloride 109 H Carbon Dioxide 21 Anion Gap 7 L BUN 14.0 Creatinine 0.8 Est GFR (CKD-EPI)AfAm 92.22 Est GFR (CKD-EPI)NonAf 79.57 POC Glucometer Random Glucose 271 H Lactic Acid 2.0 Calcium 7.9 L Total Bilirubin AST ALT Alkaline Phosphatase Troponin I 0.03 Total Protein Albumin 02/21/19 02/21/19 02/22/19 16:32 21:38 06:44 WBC RBC Hgb Hct MCV MCH MCHC RDW Plt Count MPV Sodium Potassium Chloride Carbon Dioxide Anion Gap BUN Creatinine Est GFR (CKD-EPI)AfAm Est GFR (CKD-EPI)NonAf POC Glucometer 192 165 135 Random Glucose Lactic Acid Calcium Total Bilirubin AST ALT Alkaline Phosphatase Troponin I Total Protein Albumin Active Medications Generic Name Dose Route Start Last Admin Trade Name Maria Eugenia PRN Reason Stop Dose Admin Acetaminophen 650 mg 02/21/19 18:00 02/22/19 05:52 Tylenol - PO 02/22/19 12:01 650 mg Q6H ANGÉLICA Administration Aspirin 81 mg 02/21/19 12:30 02/21/19 13:28 Ecotrin - PO 81 mg DAILY ANGÉLICA Administration Atorvastatin Calcium 40 mg 02/21/19 12:30 02/21/19 13:28 Lipitor - PO 40 mg DAILY ANGÉLICA Administration Enalapril Maleate 20 mg 02/21/19 10:00 02/21/19 10:21 Vasotec - PO Not Given DAILY ANGÉLICA Enoxaparin Sodium 40 mg 02/21/19 10:00 02/21/19 10:56 Lovenox - SQ Not Given DAILY ANGÉLICA Ceftriaxone Sodium 2 gm in 50 mls @ 100 mls/hr 02/21/19 10:30 02/21/19 10:56 Ceftriaxone 2 Gm-D5w Bag IVPB 100 mls/hr DAILY ANGÉLICA Administration Protocol Sodium Chloride 1,000 mls @ 125 mls/hr 02/21/19 18:08 02/21/19 18:13 Normal Saline - IV 125 mls/hr ASDIR ANGÉLICA Administration Insulin Aspart 0 units 02/21/19 16:30 02/22/19 07:02 Novolog Vial SQ Not Given ACHS ANGÉLICA Protocol Microbiology 02/20/19 23:00 Urine - Urine Clean Catch Urine Culture - Preliminary Lactose Fermenting Neg Bacilli 02/20/19 19:55 Blood - Peripheral Venous Blood Culture - Preliminary Lactose Fermenting Neg Bacilli 02/20/19 19:45 Blood - Peripheral Venous Blood Culture - Preliminary NO GROWTH OBTAINED AFTER 24 HOURS, INCUBATION TO CONTINUE FOR 4 DAYS. ASSESSMENT/PLAN: 63 year-old female with a PMH significant for HTN and IDDM. Admitted for severe sepsis secondary to pyelonephritis and syncope. Now diagnosed with RV systolic failure. Severe sepsis secondary to pyelonephritis LFGNB Bacteremia Metabolic encephalopathy secondary to severe sepsis/fever, resolved --Tm 100.5, still tachycardic; BP stabilized --1 out of 2 bottles (+) LFGNB; urine culture (+) LFGNB --renal function stable; US renal unremarkable --continue ceftriaxone (day #3) --Tylenol for fever --ID following Syncope Right ventricular systolic heart failure --troponins neg x 3 --CT head negative --CXR unremarkable --02/22 echo: RV moderately dilated with reduced systolic function; borderline concentric LVH, LV function normal, EF 55-60%; mild TR --US carotids: unremarkable --telemetry monitoring --cardiology consult requested Hypertension --resume home enalapril; continue to hold HCTZ IDDM --Novolog sliding scale coverage FEN Fluids: PO intake adequate Electrolytes: replete as indicated Nutrition: diabetic, low sodium DVT prophylaxis: subq lovenox Dispo: continues to require inpatient care. Full code. LFGNB Bacteremia Hypokalemia --repleted Hypomagnesemia --repleted Corrected Ca 8.4 Visit type - Emergency Visit Emergency Visit: Yes ED Registration Date: 02/20/19 Care time: The patient presented to the Emergency Department on the above date and was hospitalized for further evaluation of their emergent condition. - New Patient This patient is new to me today: No - Critical Care Critical Care patient: No
[2019-02-22 08:54] LABS: BASO % 0.2 % (0-2.0); EOS % 0.7 % (0-4.5); HEMATOCRIT 24.9 % (32.4-45.2); LYMPH % 12.9 % (8-40); MCH 27.3 pg (25.7-33.7); MCHC 32.3 g/dl (32.0-36.0); MEAN CELL VOLUME 84.3 fl (80-96); MEAN PLT VOLUME 7.6 fl (7.5-11.1); MONO % 6.2 % (3.8-10.2); PLATELET COUNT 232 K/MM3 (134-434); RBC 2.95 M/mm3 (3.60-5.2); RDW 16.2 % (11.6-15.6); WHITE BLOOD COUNT 12.3 K/mm3 (4.0-10.8)
[2019-02-22 09:13] LABS: ALBUMIN 2.1 g/dl (3.4-5.0); BILIRUBIN,TOTAL 0.9 mg/dl (0.2-1); CREATININE 0.5 mg/dl (0.55-1.3); MAGNESIUM 1.4 mg/dL (1.8-2.4); POTASSIUM 3.1 mmol/L (3.5-5.1)
[2019-02-22 09:30] LABS: CALCIUM 6.9 mg/dl (8.5-10)
[2019-02-22] MEDS ORDERED: MAGNESIUM SULF 50% (8.12 MEQ/2 ML-1 GM VIAL) IVPB ONE (09:34)
[2019-02-22] MEDS ORDERED: MAGNESIUM SULFATE IN WATER 2 GM/50 ML IVPB IVPB ONE (09:45)
[2019-02-22] MEDS: ASPIRIN COATED 81 MG TABLET.EC PO SCH (09:56)
[2019-02-22] MEDS: CEFTRIAXONE 2 GM-D5W BAG 2 GM/50 ML BAG IVPB SCH (09:56)
[2019-02-22] MEDS: POTASSIUM CHLORIDE TABS 20 MEQ TABLET.ER (FP) PO SCH ×2 (09:57→17:16)
[2019-02-22] MEDS: ENOXAPARIN NA (PORCINE) 40 MG/0.4 ML DISP.SYRIN SQ SCH (09:57)
[2019-02-22] MEDS: ATORVASTATIN CA 40 MG TABLET (FP) PO SCH (10:05)
--- NOTE | 2019-02-22 10:25 | PN ---
Progress Note, Physician History of Present Illness: OOB IN CHAIR FEELING BETTER DENIES DYSURIA/ HEMATURIA NO FEVER/ CHILLS LOW GRADE TEMP NOTED WBC IMPROVED BC, URINE C/S LF - Current Medication List Current Medications: Active Medications Acetaminophen (Tylenol -) 650 mg PO Q6H [facility] Stop: 02/23/19 12:01 Last Admin: 02/22/19 05:52 Dose: 650 mg Aspirin (Ecotrin -) 81 mg PO DAILY ANGÉLICA Last Admin: 02/22/19 09:56 Dose: 81 mg Atorvastatin Calcium (Lipitor -) 40 mg PO DAILY [facility] Last Admin: 02/22/19 10:05 Dose: 40 mg Enalapril Maleate (Vasotec -) 20 mg PO DAILY [facility] Last Admin: 02/21/19 10:21 Dose: Not Given Enoxaparin Sodium (Lovenox -) 40 mg SQ DAILY [facility] Last Admin: 02/22/19 09:57 Dose: 40 mg Ceftriaxone Sodium (Ceftriaxone 2 Gm-D5w Bag) 2 gm in 50 mls @ 100 mls/hr IVPB DAILY [facility]; Protocol Last Admin: 02/22/19 09:56 Dose: 100 mls/hr Sodium Chloride (Normal Saline -) 1,000 mls @ 125 mls/hr IV ASDIR [facility] Last Admin: 02/21/19 18:13 Dose: 125 mls/hr Magnesium Sulfate (Magnesium Sulf 2 G/50 Ml Bag) 2 gm in 50 mls @ 50 mls/hr IVPB ONCE ONE Stop: 02/22/19 10:44 Last Admin: 02/22/19 09:56 Dose: 50 mls/hr Insulin Aspart (Novolog Vial) 0 units SQ ACHS [facility]; Protocol Last Admin: 02/22/19 07:02 Dose: Not Given Potassium Chloride (K-Dur -) 40 meq PO Q6H [facility] Stop: 02/22/19 16:31 Last Admin: 02/22/19 09:57 Dose: 40 meq - Objective Vital Signs: Vital Signs Temperature 99.7 F H 02/22/19 08:00 Pulse Rate 99 H 02/22/19 08:00 Respiratory Rate 18 02/22/19 09:00 Blood Pressure 130/70 02/22/19 08:00 O2 Sat by Pulse Oximetry (%) 96 02/22/19 09:00 Constitutional: Yes: No Distress, Obese Eyes: Yes: Conjunctiva Clear Cardiovascular: Yes: Regular Rate and Rhythm, S1, S2 Respiratory: Yes: CTA Bilaterally Gastrointestinal: Yes: Normal Bowel Sounds, Soft. No: Tenderness Genitourinary: No: CVA Tenderness - Left, CVA Tenderness - Right Labs: CBC, BMP 02/22/19 08:30 02/22/19 08:30 INR, PTT INR 1.37 (0.82-1.09) H 02/20/19 19:45 Assessment/Plan GRAM NEGATIVE BACTEREMIA/ SEPSIS UTI/ SEPSIS SECONDARY TO UTI S/P SYNCOPE FEVER/ LEUKOCYTOSIS IMPROVED IDDM AWAIT C/S RENAL SONOGRAM R/O HN/PERINEPHRIC ABSCESS CONTINUE CEFTRIAXONE
--- NOTE | 2019-02-22 13:55 | EKG ---
Test Reason : Blood Pressure : / mmHG Vent. Rate : 095 BPM Atrial Rate : 095 BPM P-R Int : 154 ms QRS Dur : 088 ms QT Int : 358 ms P-R-T Axes : 063 017 007 degrees QTc Int : 449 ms NORMAL SINUS RHYTHM NONSPECIFIC T WAVE ABNORMALITY ABNORMAL ECG WHEN COMPARED WITH ECG OF 20-FEB-2019 19:47, NONSPECIFIC T WAVE ABNORMALITY, WORSE IN ANTEROLATERAL LEADS Confirmed by URBANO PLATT MD ([id number]) on 02/22/2019 1:55:17 PM Referred By: LINO DONALD Confirmed By:URBANO PLATT MD
--- NOTE | 2019-02-22 14:30 | ECHO ---
Name: TRENTON MYERS Exam:Adult Echocardiogram Study Date: 02/22/2019 01:05 PM Age: 63 yrs Reason For Study: SYNCOPE Height: 66 in Weight: 183 lb BSA: 1.9 m2 MMode/2D Measurements & Calculations IVSd: 1.2 cm Ao root diam: 2.5 cm LVIDd: 4.0 cm LA dimension: 2.4 cm LVIDs: 2.6 cm LVPWd: 0.96 cm EDV(Teich): 68.4 ml LVOT diam: 2.0 cm ESV(Teich): 24.3 ml Doppler Measurements & Calculations MV E max jayce: 126.0 cm/sec MV A max jayce: 104.2 cm/sec MV dec slope: 1245 cm/sec2 MV E/A: 1.2 Ao V2 max: 168.8 cm/sec LV V1 max P.5 mmHg Ao max P.4 mmHg LV V1 max: 127.0 cm/sec TEE(V,D): 2.3 cm2 MR max jayce: 277.9 cm/sec TR max jayce: 213.3 cm/sec MR max P.9 mmHg TR max P.6 mmHg PA V2 max: 121.7 cm/sec PI end-d jayce: 75.9 cm/sec PA max P.9 mmHg Left Ventricle There is borderline concentric left ventricular hypertrophy. Left ventricular systolic function is no rmal. Ejection Fraction = 55-60%. The transmitral spectral Doppler flow pattern is normal for age. Right Ventricle The right ventricle is moderately dilated. The right ventricular systolic function is mildly reduced. Atria Normal left and right atrial size and function. Mitral Valve The mitral valve is normal in structure and function. There is no mitral valve stenosis. There is mil d mitral regurgitation. Tricuspid Valve The tricuspid valve is normal in structure and function. There is mild tricuspid regurgitation. There was insufficient TR detected to calculate RV systolic pressure. Aortic Valve The aortic valve opens well. The aortic valve is trileaflet. No hemodynamically significant valvular aortic stenosis. Pulmonic Valve The pulmonic valve is not well seen, but is grossly normal. There is no pulmonic valvular stenosis. T race to mild pulmonic valvular regurgitation. Great Vessels The aortic root is normal size. Interpretation Summary In the apical views, the right ventricle appears moderately dilated and with reduced systolic functio n. Clinical correlation is required. The aortic valve opens well. No hemodynamically significant valvular aortic stenosis. There is borderline concentric left ventricular hypertrophy. Left ventricular systolic function is normal. Ejection Fraction = 55-60%. The right ventricle is moderately dilated. The right ventricular systolic function is mildly reduced. There is mild tricuspid regurgitation. There was insufficient TR detected to calculate RV systolic pressure. In the apical views, the right ventricle appears moderately dilated and with reduced systolic functio n. Clinical correlation is required. MD Wynn *Cain 02/22/2019 02:29 PM
--- NOTE | 2019-02-22 17:29 | CON.CARD ---
Cardiology Consult (text) - Consultation Consultation Note: cc: chills hpi: 63 f hx dm, htn, hld here with chills. Past few days she has been tired and weak. 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 No loc or prodrome sxs. No cp sob palps dizzy loc pnd orthopnea le edema. No hx hrt dz. EMS was called and pt found to have urosepsis now improving on abx. pmh: per hpi psh: no surgery social: no tob fam: no premature cad, scd ros: per hpi; all others nl meds: Home Medications Medication Instructions Recorded Enalapril Maleate [Vasotec] 20 mg PO DAILY 02/20/19 Hydrochlorothiazide [Hctz -] 25 mg PO DAILY 02/20/19 Insulin Lispro [Humalog] 100 unit SQ ASDIR 02/20/19 pe: Vital Signs Period Temp Pulse Resp BP Sys/Guerrier Pulse Ox Last 24 Hr 98.2 F-100.1 F 94-108 17-20 97-133/49-72 96-100 nad no jvd rrr s1s2 no mrg cta bl nl eff aao3 no le e/c/c abd nt nd pos bs no jaundice diaphoresis pos dp pt no carotid bruits Laboratory Last Values WBC 12.3 K/mm3 (4.0-10.8) H 02/22/19 08:30 RBC 2.95 M/mm3 (3.60-5.2) L 02/22/19 08:30 Hgb 8.0 GM/dl (10.7-15.3) L 02/22/19 08:30 Hct 24.9 % (32.4-45.2) L 02/22/19 08:30 MCV 84.3 fl (80-96) 02/22/19 08:30 MCH 27.3 pg (25.7-33.7) 02/22/19 08:30 MCHC 32.3 g/dl (32.0-36.0) 02/22/19 08:30 RDW 16.2 % (11.6-15.6) H 02/22/19 08:30 Plt Count 232 K/MM3 (134-434) 02/22/19 08:30 MPV 7.6 fl (7.5-11.1) 02/22/19 08:30 Absolute Neuts (auto) 9.8 K/mm3 02/22/19 08:30 Neutrophils % 80.0 % (42.8-82.8) 02/22/19 08:30 Lymphocytes % 12.9 % (8-40) 02/22/19 08:30 Monocytes % 6.2 % (3.8-10.2) 02/22/19 08:30 Eosinophils % 0.7 % (0-4.5) 02/22/19 08:30 Basophils % 0.2 % (0-2.0) 02/22/19 08:30 Nucleated RBC % 0 % (0-0) 02/21/19 01:30 PT with INR 15.2 SEC (10.2-13.0) H 02/20/19 19:45 INR 1.37 (0.82-1.09) H 02/20/19 19:45 VBG pH 7.44 (7.31-7.41) H 02/20/19 19:55 POC VBG pCO2 31.8 mmHg (41-51) L 02/20/19 19:55 POC VBG pO2 63.1 mmHg (30-40) H 02/20/19 19:55 VBG HCO3 21.1 mmol/L (23-29) L 02/20/19 19:55 VBG O2 Sat (Nahun) 89.3 % (70-80) H 02/20/19 19:55 VBG Base Excess -2.2 meq/l (-2-2) L 02/20/19 19:55 Sodium 141 mmol/L (136-145) 02/22/19 08:30 Potassium 3.1 mmol/L (3.5-5.1) L 02/22/19 08:30 Chloride 120 mmol/L (98-107) H 02/22/19 08:30 Carbon Dioxide 17 mmol/L (21-32) L 02/22/19 08:30 Anion Gap 4 MMOL/L (8-16) L 02/22/19 08:30 BUN 6.0 mg/dl (7-18) L 02/22/19 08:30 Creatinine 0.5 mg/dl (0.55-1.3) L 02/22/19 08:30 Est GFR (CKD-EPI)AfAm 121.07 02/22/19 08:30 Est GFR (CKD-EPI)NonAf 104.46 02/22/19 08:30 POC Glucometer 175 UNITS (80-120) 02/22/19 16:22 Random Glucose 138 mg/dl (74-106) H 02/22/19 08:30 Hemoglobin A1c % 10.8 % (4.2-6.3) H 02/21/19 01:30 Lactic Acid 2.0 mmol/L (0.4-2.0) 02/21/19 15:12 Calcium 6.9 mg/dl (8.5-10) L* 02/22/19 08:30 Magnesium 1.4 mg/dL (1.8-2.4) L 02/22/19 08:30 Total Bilirubin 0.9 mg/dl (0.2-1) 02/22/19 08:30 AST 21 U/L (15-37) 02/22/19 08:30 ALT 26 U/L (13-61) 02/22/19 08:30 Alkaline Phosphatase 44 U/L (45-117) L 02/22/19 08:30 Creatine Kinase 46 U/L (26-192) 02/20/19 19:45 Troponin I 0.03 ng/ml (0.00-0.05) 02/21/19 14:05 Total Protein 5.0 g/dl (6.4-8.2) L 02/22/19 08:30 Albumin 2.1 g/dl (3.4-5.0) L 02/22/19 08:30 Urine Color Yellow 02/20/19 21:40 Urine Appearance Cloudy 02/20/19 21:40 Urine pH 5.5 (4.5-8) 02/20/19 21:40 Urine Protein 1+ (NEGATIVE) H 02/20/19 21:40 Urine Glucose (UA) Negative (NEGATIVE) 02/20/19 21:40 Urine Ketones Negative (NEGATIVE) 02/20/19 21:40 Urine Blood Trace-lysed (NEGATIVE) 02/20/19 21:40 Urine Nitrite Positive (NEGATIVE) H 02/20/19 21:40 Urine Bilirubin Negative (NEGATIVE) 02/20/19 21:40 Urine Urobilinogen 0.2 (0.2-1.0) 02/20/19 21:40 Ur Leukocyte Esterase 2+ (NEGATIVE) 02/20/19 21:40 Urine RBC 5-10 /hpf (0-4) 02/20/19 21:40 Urine WBC >100 (NEGATIVE) 02/20/19 21:40 Ur Transition Epith Cell Few /hpf 02/20/19 21:40 Urine Bacteria Many /hpf (NEGATIVE) 02/20/19 21:40 Salicylates < 1.7 mg/dL (2.8-20) L 02/20/19 19:45 Acetaminophen < 10 ug/mL (10-30) L 02/20/19 19:45 Alcohol, Quantitative < 3.0 mg/dL (0.0-5.0) 02/20/19 19:45 tele: sr ecg: sr nl intervals no ischemic changes cxr: clear lungs carotids 02/2019: no sig stenosis echo 02/2019: nl lv, mild tr, mod rve and mild dec rv syst fcn only in apical views a/p: 63 f hx dm, htn, hld here with chills. uti, sepsis: -improving with abx -plans per ID htn: -continue enrique-i hld: -cont statin weakness: -pt denies syncope or presyncope, says she just was weak and had chills so sat down when at home -ecg, carotids, tele, ce's benign here -echo reporting possible mild rv dysfcn in apical views, no signs CHF, would repeat echo as outpt after acute issues resolve
[2019-02-22] MEDS ORDERED: SODIUM CHLORIDE 500 ML IV STA (21:45)
[2019-02-23] MEDS: ACETAMINOPHEN 325 MG TABLET (FP) PO SCH ×2 (06:50→12:24)
[2019-02-23] MEDS: INSULIN (NOVOLOG) ASPART 100 UNITS/ML 10ML VIAL SQ SCH ×4 (06:50→21:55)
[2019-02-23 08:19] LABS: BASO % 0.2 % (0-2.0); EOS % 1.3 % (0-4.5); HEMATOCRIT 26.9 % (32.4-45.2); LYMPH % 18.4 % (8-40); MCH 27.8 pg (25.7-33.7); MCHC 33.4 g/dl (32.0-36.0); MEAN CELL VOLUME 83.3 fl (80-96); MEAN PLT VOLUME 7.6 fl (7.5-11.1); MONO % 7.1 % (3.8-10.2); PLATELET COUNT 259 K/MM3 (134-434); RBC 3.23 M/mm3 (3.60-5.2); RDW 16.1 % (11.6-15.6); WHITE BLOOD COUNT 9.6 K/mm3 (4.0-10.8)
[2019-02-23 08:26] LABS: ALBUMIN 2.6 g/dl (3.4-5.0); BILIRUBIN,TOTAL 0.8 mg/dl (0.2-1); CALCIUM 8.4 mg/dl (8.5-10); CREATININE 0.6 mg/dl (0.55-1.3); MAGNESIUM 1.9 mg/dL (1.8-2.4); POTASSIUM 4.1 mmol/L (3.5-5.1); TOT PROT 6.7 g/dl (6.4-8.2)
[2019-02-23] MEDS ORDERED: MAGNESIUM 1GM/D5W - 1 GM/100 ML IVPB IVPB ONE (08:45)
--- NOTE | 2019-02-23 08:46 | PN ---
Progress Note, Physician Chief Complaint: admitted for sepsis 2/2 UTI History of Present Illness: 24HR events -no complaints this morning - Current Medication List Current Medications: Active Medications Acetaminophen (Tylenol -) 650 mg PO Q6H [facility] Stop: 02/23/19 12:01 Last Admin: 02/23/19 06:50 Dose: 650 mg Aspirin (Ecotrin -) 81 mg PO DAILY [facility] Last Admin: 02/22/19 09:56 Dose: 81 mg Atorvastatin Calcium (Lipitor -) 40 mg PO DAILY [facility] Last Admin: 02/22/19 10:05 Dose: 40 mg Enalapril Maleate (Vasotec -) 20 mg PO DAILY [facility] Last Admin: 02/21/19 10:21 Dose: Not Given Enoxaparin Sodium (Lovenox -) 40 mg SQ DAILY [facility] Last Admin: 02/22/19 09:57 Dose: 40 mg Ceftriaxone Sodium (Ceftriaxone 2 Gm-D5w Bag) 2 gm in 50 mls @ 100 mls/hr IVPB DAILY [facility]; Protocol Last Admin: 02/22/19 09:56 Dose: 100 mls/hr Magnesium Sulfate/Dextrose (Magnesium 1gm/D5w -) 1 gm in 100 mls @ 100 mls/hr IVPB ONCE ONE Stop: 02/23/19 09:44 Insulin Aspart (Novolog Vial) 0 units SQ ACHS [facility]; Protocol Last Admin: 02/23/19 06:50 Dose: Not Given - Objective Vital Signs: Vital Signs Temperature 99.9 F H 02/23/19 06:01 Pulse Rate 95 H 02/23/19 06:01 Respiratory Rate 18 02/23/19 06:01 Blood Pressure 127/63 02/23/19 06:01 O2 Sat by Pulse Oximetry (%) 97 02/23/19 08:39 Constitutional: Yes: Well Nourished, No Distress, Calm Eyes: Yes: Conjunctiva Clear, PERRL HENT: Yes: Atraumatic, Normocephalic Neck: Yes: Supple Cardiovascular: Yes: Regular Rate and Rhythm Respiratory: Yes: Regular, CTA Bilaterally Gastrointestinal: Yes: Normal Bowel Sounds, Soft, Abdomen, Obese ...Rectal Exam: Yes: Deferred Musculoskeletal: Yes: WNL Extremities: Yes: WNL Edema: No Peripheral Pulses: Left Radial: 2+, Right Radial: 2+ Integumentary: Yes: WNL Neurological: Yes: Alert, Oriented ...Motor Strength: WNL Psychiatric: Yes: Alert, Oriented Labs: CBC, BMP 02/23/19 07:55 02/23/19 07:55 INR, PTT INR 1.37 (0.82-1.09) H 02/20/19 19:45 - ....Imaging Ultrasound: Report Reviewed (Renal sono 02/22 without evidence of acute findings) Problem List - Problems (1) Prophylactic measure Assessment/Plan: OOB to chair Ambulate as tolerated ANDRES stockings Lovenox 40mg SC daily Code(s): Z29.9 - ENCOUNTER FOR PROPHYLACTIC MEASURES, UNSPECIFIED (2) Complicated UTI (urinary tract infection) Assessment/Plan: ceftriaxone 2G daily trend WBC and temp curve Code(s): N39.0 - URINARY TRACT INFECTION, SITE NOT SPECIFIED (3) Diabetes Assessment/Plan: diabetic -low sodium diet insulin SS fingerstick ACHS statin daily Code(s): E11.9 - TYPE 2 DIABETES MELLITUS WITHOUT COMPLICATIONS (4) HTN (hypertension) Assessment/Plan: pt currently normotensive continue to hold BP meds will assess BP trend daily Code(s): I10 - ESSENTIAL (PRIMARY) HYPERTENSION (5) Sepsis Assessment/Plan: c/w rocephin daily repeat blood cultures 02/23 and 02/24 for clearance trend WBC Code(s): A41.9 - SEPSIS, UNSPECIFIED ORGANISM Qualifiers: Sepsis type: sepsis due to unspecified organism Qualified Code(s): A41.9 - Sepsis, unspecified organism Impression/Plan Impression/Plan: Dispo: -continues to require inpatient care. Full code. -maintain on telemetry Visit type - Emergency Visit Emergency Visit: Yes ED Registration Date: 02/20/19 Care time: The patient presented to the Emergency Department on the above date and was hospitalized for further evaluation of their emergent condition. - New Patient This patient is new to me today: Yes Date on this admission: 02/23/19 - Critical Care Critical Care patient: No - Discharge Referral Referred to [facility] Med P.C.: No
[2019-02-23] MEDS ORDERED: PT OWN MED DRAWER 7, Y5N ONE (09:21)
[2019-02-23] MEDS: CEFTRIAXONE 2 GM-D5W BAG 2 GM/50 ML BAG IVPB SCH (10:19)
[2019-02-23] MEDS: ENOXAPARIN NA (PORCINE) 40 MG/0.4 ML DISP.SYRIN SQ SCH (10:19)
[2019-02-23] MEDS: ASPIRIN COATED 81 MG TABLET.EC PO SCH (10:19)
[2019-02-23] MEDS: ATORVASTATIN CA 40 MG TABLET (FP) PO SCH (10:19)
[2019-02-23] MEDS: ENALAPRIL MALEATE 10 MG TABLET (FP) PO SCH (10:31)
[2019-02-24] MEDS: INSULIN (NOVOLOG) ASPART 100 UNITS/ML 10ML VIAL SQ SCH ×2 (07:01→12:02)
[2019-02-24 09:00] LABS: EOS % 2.4 % (0-4.5); HEMOGLOBIN 9.3 GM/dl (10.7-15.3); LYMPH % 37.5 % (8-40); MCH 26.9 pg (25.7-33.7); MCHC 32.1 g/dl (32.0-36.0); MEAN CELL VOLUME 83.8 fl (80-96); MONO % 9.5 % (3.8-10.2); NEUT % 49.6 % (42.8-82.8); PLATELET COUNT 316 K/MM3 (134-434); RBC 3.46 M/mm3 (3.60-5.2); RDW 16.1 % (11.6-15.6); WHITE BLOOD COUNT 6.9 K/mm3 (4.0-10.8)
[2019-02-24 09:21] LABS: ALBUMIN 2.8 g/dl (3.4-5.0); BILIRUBIN,TOTAL 0.6 mg/dl (0.2-1); CALCIUM 8.7 mg/dl (8.5-10); CREATININE 0.6 mg/dl (0.55-1.3); MAGNESIUM 1.9 mg/dL (1.8-2.4)
[2019-02-24] MEDS ORDERED: PT OWN MED DRAWER 7, Y5N ONE (09:43)
[2019-02-24] MEDS: ENOXAPARIN NA (PORCINE) 40 MG/0.4 ML DISP.SYRIN SQ SCH (10:05)
[2019-02-24] MEDS: CEFTRIAXONE 2 GM-D5W BAG 2 GM/50 ML BAG IVPB SCH (10:05)
[2019-02-24] MEDS: ASPIRIN COATED 81 MG TABLET.EC PO SCH (10:06)
[2019-02-24] MEDS: ATORVASTATIN CA 40 MG TABLET (FP) PO SCH (10:08)
[2019-02-24 10:24] VITALS: BP 127/74; PULSE 73; TEMP 98.7
--- NOTE | 2019-02-24 14:38 | DS ---
Physical Exam: SUBJECTIVE: Patient seen and examined. Reports feeling better, asymptomatic. OBJECTIVE: Vital Signs Period Temp Pulse Resp BP Sys/Guerrier Pulse Ox Last 24 Hr 98.0 F-98.7 F 73-88 17-19 111-128/60-74 96-100 PHYSICAL EXAM GENERAL: The patient is awake, alert, and fully oriented, in no acute distress. HEAD: Normal with no signs of trauma. EYES: PERRL, extraocular movements intact, sclera anicteric, conjunctiva clear. ENT: Ears normal, nares patent, oropharynx clear without exudates, moist mucous membranes. NECK: Trachea midline, full range of motion, supple. LUNGS: Breath sounds equal, clear to auscultation bilaterally, no wheezes, no crackles, no accessory muscle use. HEART: Regular rate and rhythm, S1, S2 without murmur, rub or gallop. ABDOMEN: Soft, nontender, nondistended, normoactive bowel sounds, no guarding, no rebound, no hepatosplenomegaly, no masses. EXTREMITIES: 2+ pulses, warm, well-perfused, no edema. NEUROLOGICAL: Cranial nerves II through XII grossly intact. Normal speech, gait not observed. PSYCH: Normal mood, normal affect. SKIN: Warm, dry, normal turgor, no rashes or lesions noted. LABS Laboratory Results - last 24 hr 02/23/19 02/23/19 02/23/19 11:38 17:02 21:54 WBC RBC Hgb Hct MCV MCH MCHC RDW Plt Count MPV Absolute Neuts (auto) Neutrophils % Lymphocytes % Monocytes % Eosinophils % Basophils % Sodium Potassium Chloride Carbon Dioxide Anion Gap BUN Creatinine Est GFR (CKD-EPI)AfAm Est GFR (CKD-EPI)NonAf POC Glucometer 138 123 128 Random Glucose Calcium Magnesium Total Bilirubin AST ALT Alkaline Phosphatase Total Protein Albumin 02/24/19 02/24/19 02/24/19 06:57 08:00 08:00 WBC 6.9 RBC 3.46 L Hgb 9.3 L Hct 29.0 L MCV 83.8 MCH 26.9 MCHC 32.1 RDW 16.1 H Plt Count 316 MPV 8.0 Absolute Neuts (auto) 3.3 Neutrophils % 49.6 Lymphocytes % 37.5 Monocytes % 9.5 Eosinophils % 2.4 Basophils % 1.0 Sodium 140 Potassium 4.0 Chloride 109 H Carbon Dioxide 22 Anion Gap 9 BUN 6.0 L Creatinine 0.6 Est GFR (CKD-EPI)AfAm 114.02 Est GFR (CKD-EPI)NonAf 98.38 POC Glucometer 136 Random Glucose 140 H Calcium 8.7 Magnesium 1.9 Total Bilirubin 0.6 AST 23 ALT 32 Alkaline Phosphatase 77 Total Protein 7.0 Albumin 2.8 L Microbiology 02/23/19 09:55 Blood - Peripheral Venous Blood Culture - Preliminary NO GROWTH OBTAINED AFTER 24 HOURS, INCUBATION TO CONTINUE FOR 4 DAYS. 02/23/19 09:45 Blood - Peripheral Venous Blood Culture - Preliminary NO GROWTH OBTAINED AFTER 24 HOURS, INCUBATION TO CONTINUE FOR 4 DAYS. 02/20/19 19:45 Blood - Peripheral Venous Blood Culture - Preliminary NO GROWTH OBTAINED AFTER 72 HOURS, INCUBATION TO CONTINUE FOR 2 DAYS. 02/20/19 23:00 Urine - Urine Clean Catch Urine Culture - Final Escherichia Coli 02/20/19 19:55 Blood - Peripheral Venous Blood Culture - Final Escherichia Coli HOSPITAL COURSE: Date of Admission:02/20/19 Date of Discharge: 02/24/19 This is a 63 year-old female with a PMH significant for HTN, HDL,and IDDM. Admitted for severe sepsis secondary to pyelonephritis and LFGNB Bacteremia. Pt received Ceftriaxone with improvement. Pt was evaluated by ID Dr. Malave. Pt remains afebrile, asymptomatic,leukocytosis normalized. Repeat Blood culture revealed no growth. Renal US unremarkable and renal functions stable. Will continue on Levaquin 500mg daily for 10 more days to complete the course as per GERARD Hernandez. Syncope: Serial cardiac enzymes negative, ACS ruled out. EKG: SR,CT head negative.Echo done revealed RV moderately dilated with reduced systolic function ; borderline concentric LVH, LV function normal, EF 55-60%; mild TR. US carotids : unremarkable. Telemetry reviewed, no cardiac events noted. Pt was evaluated by cardiology rec repeat echo as outpt after acute issues resolved *Hypertension: BP stable, will continue on home meds *IDDM: BS stable, will resume on home Insulin. --Novolog sliding scale coverage * HD: Started on Statin * Electrolyte imbalance - s/p replacement of K and Mg-normalized Minutes to complete discharge: 35 Discharge Summary Reason For Visit: SYNCOPAL EPISODE ALTERED MENTAl status Current Active Problems Complicated UTI (urinary tract infection) (Acute) Diabetes (Acute) Fever (Acute) HTN (hypertension) (Acute) Prophylactic measure (Acute) Sepsis (Acute) Syncope (Acute) Tachycardia (Acute) Tachypnea (Acute) Condition: Good - Instructions Diet, Activity, Other Instructions: Diabetic Heart Healthy Diet. Followup with Primary care provider in 1-2 weeks. Informed to complete the full course of antibiotics. For any fever, chills,chest pain shortness of breath, palpitations, advised to call primary care provider or go to the nearest Emergency Room . Referrals: Hay Hernandez MD [Staff Physician] - 3 Weeks Disposition: HOME - Home Medications Comprehensive Discharge Medication List: Ambulatory Orders Enalapril Maleate [Vasotec] 20 mg PO DAILY 02/20/19 Hydrochlorothiazide [Hctz -] 25 mg PO DAILY 02/20/19 Insulin Lispro [Humalog Kwikpen U-100] 100 unit SQ ASDIR 02/20/19 Aspirin Coated [Ecotrin -] 81 mg PO DAILY #30 tablet.ec 02/24/19 Atorvastatin Ca [Lipitor] 40 mg PO HS #30 tablet 02/24/19 Lactobacillus Acidophilus [Bacid -] 1 each PO DAILY #10 capsule 02/24/19 levoFLOXacin [Levaquin -] 500 mg PO DAILY #10 tablet 02/24/19 This patient is new to me today: Yes Date on this admission: 02/24/19 Emergency Visit: Yes ED Registration Date: 02/20/19 Care time: The patient presented to the Emergency Department on the above date and was hospitalized for further evaluation of their emergent condition. Critical Care patient: No - Discharge Referral Referred to [facility] Med P.C.: No
== END 2019-02-24 12:00 | disposition home or self-care (01) | DRG 720 ==
LOC: FER 19:31 → EDBD 19:31 → FM/S 21:57 → UNDOADMIN 02-21 08:37 → FM/S 02-21 08:37
PROVIDERS: ADMIT Internal Medicine; ATTEND Nurse Practitioner Family
DX: A41.50 Gram-negative sepsis, unspecified (principal); G93.41 Metabolic encephalopathy; I11.0 Hypertensive heart disease with heart failure; E83.42 Hypomagnesemia; I50.22 Chronic systolic (congestive) heart failure; N10 Acute pyelonephritis; R65.20 Severe sepsis without septic shock; N39.0 Urinary tract infection, site not specified; E11.9 Type 2 diabetes mellitus without complications; Z79.4 Long term (current) use of insulin; N12 Tubulo-interstitial nephritis, not specified as acute or chronic; E87.6 Hypokalemia; R06.82 Tachypnea, not elsewhere classified; E78.5 Hyperlipidemia, unspecified
CPT/HCPCS: 36415; 70450-TC; 71045-TC-FY; 76775-TC; 80048; 80053; 80307; 81003; 81015; 82550; 82803; 82962; 83036; 83605; 83735; 84484; 85025; 85027; 85610; 87040; 87086; 87186; 93005; 93306-TC; 93880-TC; 99285-25; J0131; J7030